=== PATIENT | male | born 1980 | race Caucasian/White ===

== ENCOUNTER 2016-11-28 13:30 | Emergency (ER) | payer OTHER ==
[~2016-11-28] VITALS: Ht 177.8 cm; Wt 84.5 kg
[2016-11-28] MEDS ORDERED: BUSP30TA2 PO (13:53)
[2016-11-28] MEDS ORDERED: [UNRECOGNIZED DRUG - CODE] PO (13:53)
[2016-11-28] MEDS ORDERED: QUET300T18 PO (13:53)
[2016-11-28] MEDS ORDERED: QUET100T PO (13:53)
[2016-11-28] MEDS ORDERED: HYDROCODONE/ACETAMINOPHEN 10-325 MG TABLET PO ONE (14:45)
[2016-11-28] MEDS ORDERED: SULFAMETHOX/TRIMETH 20 ML in DEXTROSE 5%-WATER 250 ML IV ONE (17:15)
[2016-11-28 18:07] VITALS: BP 132/78
== END 2016-11-28 18:40 | disposition home or self-care (01) ==
LOC: EMS 13:30
DX: L03.114 Cellulitis of left upper limb (principal); M25.522 Pain in left elbow; Z88.0 Allergy status to penicillin; Z88.6 Allergy status to analgesic agent
CPT/HCPCS: 73080; 96365; 99284; J3490; J7060

== ENCOUNTER 2021-02-16 19:15 | Emergency (ER) | payer OTHER ==
[~2021-02-16] VITALS: Ht 172.7 cm; Wt 106.8 kg
[~2021-02-16 19:15] MED LIST: BUPR-317 PO; BUSP30TA2 PO; QUET100T PO; QUET300T19 PO
[2021-02-16] MEDS ORDERED: BACTDSB PO (19:37)
[2021-02-16] MEDS ORDERED: DULO60CA98 PO (19:37)
[2021-02-16] MEDS ORDERED: DULO30CA89 PO (19:37)
[2021-02-16] MEDS ORDERED: CEPH500C2 PO (19:37)
[2021-02-16 22:00] VITALS: BP 158/81
[2021-02-16] MEDS ORDERED: CYCLOBENZAPRINE HCL 10 MG TABLET PO ONE (22:30)
[2021-02-16] MEDS ORDERED: FLUCONAZOLE 150 MG TABLET PO ONE (22:30)
[2021-02-16] MEDS ORDERED: ACETAMINOPHEN 500 MG TABLET PO ONE (22:30)
== END 2021-02-16 23:17 | disposition home or self-care (01) ==
LOC: EMS 19:18
DX: M54.42 Lumbago with sciatica, left side (principal); F31.9 Bipolar disorder, unspecified; F17.210 Nicotine dependence, cigarettes, uncomplicated; B35.3 Tinea pedis
CPT/HCPCS: 99284; Z7502; Z7610